=== PATIENT | male | born 1990 | race African-American/Black ===

== ENCOUNTER 2018-08-07 00:36 | Emergency (ER) | payer OTHER, SELFPAY ==
[~2018-08-07] VITALS: Ht 188 cm; Wt 81.6 kg
[2018-08-07] MEDS ORDERED: KETOROLAC 60 MG/2 ML VIAL (J1885) IM ONE (03:45)
[2018-08-07 05:10] VITALS: BP 138/68
--- NOTE | 2018-08-07 07:58 | REP ---
Thoracic spine three views History: Trauma There is no acute fracture or subluxation. Intervertebral discs are normal in height. Impression: There is no acute fracture or subluxation. Electronically Signed by Pramod Medina MD 08/07/2018 07:50 A
--- NOTE | 2018-08-07 08:04 | REP ---
SACRUM AND COCCYX, THREE VIEWS: HISTORY: Trauma. There is no acute fracture or subluxation. The L4-5 and L5-S1 intervertebral discs are normal in height. IMPRESSION: There is no acute fracture or subluxation. Electronically Signed by Pramod Medina MD 08/07/2018 08:18 A
== END 2018-08-07 05:12 | disposition home or self-care (01) ==
LOC: M ED 00:36
DX: S29.012A Strain of muscle and tendon of back wall of thorax, initial encounter (principal); S30.0XXA Contusion of lower back and pelvis, initial encounter; V49.19XA Passenger injured in collision with other motor vehicles in nontraffic accident, initial encounter; Y92.410 Unspecified street and highway as the place of occurrence of the external cause; F17.210 Nicotine dependence, cigarettes, uncomplicated
CPT/HCPCS: 72072; 72220; 96372; 99283; J1885